=== PATIENT | female | born 1930 | race Caucasian/White ===

== ENCOUNTER 2020-08-06 09:31 | Inpatient (IN) | payer MEDICARE, OTHER ==
[~2020-08-06] VITALS: Ht 167.6 cm; Wt 66.4 kg
[2020-08-06] VITALS (8 sets, daily range): BP systolic 135–168; BP diastolic 62–83; Ht 167.6 cm; Wt 66.4 kg
[2020-08-06] MEDS ORDERED: ANASTROZOLE 1MG (09:43)
[2020-08-06] MEDS ORDERED: ZOFRAN8 MG PO (09:44)
[2020-08-06] MEDS ORDERED: BREO ELLIPTA 11 EACH INH (09:44)
[2020-08-06] MEDS ORDERED: ASPIRIN81 MG PO (09:45)
[2020-08-06] MEDS ORDERED: BACTRIM DS TAB1 EAC1 PO (09:45)
[2020-08-06] MEDS ORDERED: TRIAMTERENE-HC1 EAC3 PO (09:45)
[2020-08-06 10:04] LABS: BASOPHILS 0.4 % (0-2); EOSINOPHILS 0.7 % (0-7); HEMATOCRIT 37.5 % (36.0-48.0); HEMOGLOBIN 12.5 g/dL (12-16); IMMATURE GRANULOCYTES 1.1 % (0-5); LYMPHOCYTES 13.4 % (15-50); MCHC 33.3 g/dL (31.0-37.0); MCV 89.9 fL (80.0-100.0); MEAN PLATELET VOLUME 9.3 fL (7.4-10.4); MONOCYTES 9.4 % (2-11); PLATELET COUNT 360 10x3/uL (130-400); RBC 4.17 10x6/uL (4.00-5.40); RDW 14.7 % (11.5-14.5); WBC 14.2 10x3/uL (4.8-10.8)
[2020-08-06 10:17] LABS: ANION GAP 14.4 mmol/L (8-16); CARBON DIOXIDE 26.3 mmol/L (21.0-32.0); CREATININE - SERUM 2.1 mg/dL (0.6-1.3); POTASSIUM - SERUM 4.7 mmol/L (3.5-5.1)
[2020-08-06 10:26] LABS: ALBUMIN 3.7 g/dL (3.4-5.0); BILIRUBIN - TOTAL 0.43 mg/dL (0.2-1.3); PROTEIN - SERUM 7.6 g/dL (6.4-8.2)
--- NOTE | 2020-08-06 11:51 | NUR ---
PT REPORTS OK FOR GIVING INFORMATION TO HER SON, VIELKA REYES @ [phone].
[2020-08-06 12:12] LABS: BILIRUBIN NEGATIVE (NEGATIVE); KETONE NEGATIVE (NEGATIVE); NITRITE NEGATIVE (NEGATIVE); UROBILINOGEN NORMAL mg/dL (< 2)
--- NOTE | 2020-08-06 17:40 | NUR ---
ARRIVE TO ROOM VIA STRETCHER FROM ER. ALERT AND ORIENTED X4. TRANSFERS FROM STRETCHER TO BED WITH MINIMAL ASSISTANCE. NO SCD MACHINE IN ROOM. INITIATE ISOLATION TO RULE OUT COVID. CONTINUE ADMISSION PROCESS AND SAFETY PRECAUTIONS.
--- NOTE | 2020-08-06 19:18 | NUR ---
REPORT RECIEVED AND ROUNDING COMPLETE. PATIENT LAYING IN BED IN LOW FOWLERS POSITIONS. DISCUSSED WITH PATIENT DOCTORS ORDER OF NO FREE WATER RESTRICTION,PATIENT STATES SHE HAS NO NEEDS AT THIS TIME. PATIENT IS [place]. RIGHT HAND PIV THAT IS PATENT AND RUNNING FLUIDS AT THIS TIME. NO DISTRESS NOTED AT THIS TIME. CALL LIGHT WIHTIN REACH AND BED IN LOWEST LOCKED POSITION.
[2020-08-07] VITALS: BP 124/61
[2020-08-07 04:00] VITALS: BP 135/69
[2020-08-07 06:28] LABS: BASOPHILS 0.6 % (0-2); EOSINOPHILS 1.5 % (0-7); HEMATOCRIT 32.9 % (36.0-48.0); HEMOGLOBIN 10.5 g/dL (12-16); LYMPHOCYTES 12.7 % (15-50); MCH 29.2 pg (26.0-34.0); MCHC 31.9 g/dL (31.0-37.0); MCV 91.4 fL (80.0-100.0); MEAN PLATELET VOLUME 9.4 fL (7.4-10.4); MONOCYTES 6.9 % (2-11); NEUTROPHILS 77.3 % (40-80); RDW 14.8 % (11.5-14.5)
[2020-08-07 06:37] LABS: PLATELET COUNT 260 10x3/uL (130-400); WBC 8.6 10x3/uL (4.8-10.8)
[2020-08-07 06:45] LABS: ALBUMIN 2.6 g/dL (3.4-5.0); BILIRUBIN - TOTAL 0.46 mg/dL (0.2-1.3); CALCIUM 8.1 mg/dL (8.5-10.1); CARBON DIOXIDE 22.9 mmol/L (21.0-32.0); CREATININE - SERUM 1.4 mg/dL (0.6-1.3); POTASSIUM - SERUM 3.9 mmol/L (3.5-5.1); PROTEIN - SERUM 5.4 g/dL (6.4-8.2)
--- NOTE | 2020-08-07 07:20 | NUR ---
RECEIVE SHIFT REPORT. RESTING IN BED. DENIES ANY NEEDS AT THIS TIME. WILL CONTINUE PLAN OF CARE AND SAFETY PRECAUTIONS.
[2020-08-07 07:53] VITALS: BP 140/77
[2020-08-07 11:04] VITALS: BP 144/72
--- NOTE | 2020-08-07 15:45 | MORECARE ---
CASE MANAGEMENT DISCHARGE SUMMARY PATIENT: SARBJIT REYES UNIT: [id number] ADM DATE: 08/06/20 AGE: 89 : [birth year] SEX: F ROOM/BED: D.9601 AUTHOR: GURWINDER WHITNEY PHYSICIAN: REFERRING PHYSICIAN: CANDACE HERNANDEZ MD DATE OF SERVICE: 08/07/20 Discharge Plan Patient Name: SARBJIT REYES Facility: [facility]:[place] : 1930 Planned Disposition: Home Anticipated Discharge Date: 08/07/20 Discharge Date: Expected LOS: 1 Initial Reviewer: ALMA DELIA Initial Review Date: 08/07/2020 Generated: 08/07/20 4:44 pm Comments DCP- Discharge Planning Updated by [email or web address]: Yousuf Pope on 08/07/20 2:[address] Patient Name: SARBJIT REYES Admission Status: ER Accout number: [id number] Admission Date: 08-06-2020 : 1930 Admission Diagnosis:OTHER FATIGUE Attending: CANDACE HERNANDEZ Current LOS: 1 Anticipated DC Date: Planned Disposition: Primary Insurance: MEDICARE A & B Discharge Planning Comments: CM met with patient via telephone per current [facility] protocols to complete initial dc planning assessment. CM educated patient on the CM role and verbal consent was given by patient to speak with her son Domingo Reyes (POA) at [phone] to complete assessment. CM verified patient's address, phone number, and emergency contact phone numbers. Patient lives at home with family. At discharge patient plans to return home and feels this is a safe discharge. Domingo stated that the patient has 0 steps to navigate to enter the home and it is safe. Patient [facility]. CM discussed availability of home health, rehab services, and medical equipment. Domingo stated that the patient needs help dressing at times but feels that he is able to care for her adequately. Domingo (POA) declined HH, DME, SNF, and IPR at this time. Transportation provider at discharge will be with her son Domingo. CM will continue to follow and will assist as needed with dc plans/needs. Peeler Operator: Yousuf Pope DCPIA - Discharge Planning Initial Assessment Updated by [email or web address]: Yousuf Pope on 08/07/20 3:42 pm * Is the patient Alert and Oriented? Yes * How many steps to enter\exit or inside your home? 0/0 * PCP Dr Salcido * Pharmacy [facility] [address] * Preadmission Environment Home with Family * ADLs Partial Dependent * Partial ADLs (Assistance needed) Dressing * Equipment Cane Walker * Other Equipment n/a * List name and contact numbers for known caregivers / representatives who currently or will assist patient after discharge: Domingo Montield at [phone] * Verbal permission to speak to the caregivers and representatives has been obtained from the patient. Yes * Community resources currently utilized None * Additional services required to return to the preadmission environment? No * Can the patient safely return to the preadmission environment? Yes * Has this patient been hospitalized within the prior 30 days at any hospital? No Patient Name: SARBJIT REYES Page [id number] at 1545 All edits/amendments must be made on the electronic document DICTATION DATE: 08/07/20 1544 SKEIN MERCERIZING MACHINE OPERATOR: JADYN 08/07/20 1544 RPT#: [id number] DC DATE: STATUS: ADM IN [facility] [address] [place] [address] END OF REPORT
--- NOTE | 2020-08-07 16:47 | NUR ---
D/C RIGHT HAND IV, TIP INTACT. DISCHARGE INSTRUCTIONS GIVEN VERBALLY AND HANDOUTS WERE GIVEN. MEDIA JOB TITLES TOOK PATIENT DOWN TO ED ENTRANCE TO MEET DAUGHTER IN LAW. REMAINS FREE FROM INJURY.
--- NOTE | 2020-08-08 09:40 | MORECARE ---
CASE MANAGEMENT DISCHARGE SUMMARY PATIENT: SARBJIT REYES UNIT: [id number] ADM DATE: 08/06/20 AGE: 89 : [birth year] SEX: F ROOM/BED: D.7347 AUTHOR: GURWINDER WHITNEY PHYSICIAN: REFERRING PHYSICIAN: CANDACE HERNANDEZ MD DATE OF SERVICE: 08/08/20 Discharge Plan Patient Name: SARBJIT REYES Facility: [facility]:[place] : 1930 Planned Disposition: Home Anticipated Discharge Date: 08/07/20 Discharge Date: 08/07/2020 Expected LOS: 1 Initial Reviewer: [email or web address] Initial Review Date: 08/07/2020 Generated: 08/08/20 10:40 am Comments DCP- Discharge Planning Updated by [email or web address]: Yousuf Pope on 08/07/20 2:[address] Patient Name: SARBJIT REYES Admission Status: ER Accout number: [id number] Admission Date: 08-06-2020 : 1930 Admission Diagnosis:OTHER FATIGUE Attending: CANDACE HERNANDEZ Current LOS: 1 Anticipated DC Date: Planned Disposition: Primary Insurance: MEDICARE A & B Discharge Planning Comments: CM met with patient via telephone per current [facility] protocols to complete initial dc planning assessment. CM educated patient on the CM role and verbal consent was given by patient to speak with her son Domingo Reyes (POA) at [phone] to complete assessment. CM verified patient's address, phone number, and emergency contact phone numbers. Patient lives at home with family. At discharge patient plans to return home and feels this is a safe discharge. Domingo stated that the patient has 0 steps to navigate to enter the home and it is safe. Patient fills his medications at [facility] [address]. CM discussed availability of home health, rehab services, and medical equipment. Domingo stated that the patient needs help dressing at times but feels that he is able to care for her adequately. Domingo (POA) declined HH, DME, SNF, and IPR at this time. Transportation provider at discharge will be with her son Domingo. CM will continue to follow and will assist as needed with dc plans/needs. Controller Repairer And Tester: Yousuf Pope DCPIA - Discharge Planning Initial Assessment Updated by [email or web address]: Yousuf Pope on 08/07/20 3:42 pm * Is the patient Alert and Oriented? Yes * How many steps to enter\exit or inside your home? 0/0 * PCP Dr Salcido * [facility] [address] * Preadmission Environment Home with Family * ADLs Partial Dependent * Partial ADLs (Assistance needed) Dressing * Equipment Cane Walker * Other Equipment n/a * List name and contact numbers for known caregivers / representatives who currently or will assist patient after discharge: Domingo Montield at [phone] * Verbal permission to speak to the caregivers and representatives has been obtained from the patient. Yes * Community resources currently utilized None * Additional services required to return to the preadmission environment? No * Can the patient safely return to the preadmission environment? Yes * Has this patient been hospitalized within the prior 30 days at any hospital? No Last DP export: 08/07/20 2:45 p Patient Name: SARBJIT REYES Page [phone] at 0940 All edits/amendments must be made on the electronic document DICTATION DATE: 08/08/20939 BILINGUAL PATIENT SUPPORT CASEWORKER: JADYN 08/08/2040 RPT#: [id number] DC DATE:08/07/20 STATUS: DIS IN [facility] [address] [place] [address] END OF REPORT
== END 2020-08-07 18:13 | disposition home or self-care (01) | DRG 683 ==
LOC: D.ER 09:31 → D.M2 16:36 → OBSVTIME 19:00 → D.M2 19:45
PROVIDERS: Family Medicine; ADMIT Family Medicine; ATTEND Family Medicine
DX: N17.9 Acute kidney failure, unspecified (principal); E87.1 Hypo-osmolality and hyponatremia; T46.5X5A Adverse effect of other antihypertensive drugs, initial encounter; E86.0 Dehydration

== ENCOUNTER 2020-08-12 05:58 | Inpatient (IN) | payer MEDICARE, OTHER ==
[~2020-08-12] VITALS: Ht 167.6 cm; Wt 79.4 kg
[~2020-08-12 05:58] MED LIST: ANASTROZOLE 1MG; ASPIRIN81 MG PO; BACTRIM DS TAB1 EAC1 PO; BREO ELLIPTA 11 EACH INH; TRIAMTERENE-HC1 EAC3 PO; ZOFRAN8 MG PO
[2020-08-12 06:13] VITALS: BP 155/77
[2020-08-12 06:18] VITALS: BP 155/77
[2020-08-12 06:49] LABS: BASOPHILS 0.2 % (0-2); EOSINOPHILS 1.6 % (0-7); HEMATOCRIT 35.7 % (36.0-48.0); HEMOGLOBIN 11.6 g/dL (12-16); IMMATURE GRANULOCYTES 0.5 % (0-5); LYMPHOCYTES 9.7 % (15-50); MCH 29.7 pg (26.0-34.0); MCHC 32.5 g/dL (31.0-37.0); MCV 91.5 fL (80.0-100.0); MEAN PLATELET VOLUME 8.9 fL (7.4-10.4); MONOCYTES 8.7 % (2-11); NEUTROPHILS 79.3 % (40-80); PLATELET COUNT 242 10x3/uL (130-400); RDW 15.5 % (11.5-14.5); WBC 12.1 10x3/uL (4.8-10.8)
--- NOTE | 2020-08-12 06:50 | NUR ---
LUIZA VEGA SENT TO LAB.
[2020-08-12 06:56] LABS: BILIRUBIN NEGATIVE (NEGATIVE); KETONE NEGATIVE (NEGATIVE); NITRITE NEGATIVE (NEGATIVE); UROBILINOGEN NORMAL mg/dL (< 2)
[2020-08-12 06:58] LABS: APTT 24.7 SECONDS (22.8-39.4); CALC OSMOLALITY 255 mosm/kg (275-300); CALCIUM 9.6 mg/dL (8.5-10.1); CARBON DIOXIDE 24.6 mmol/L (21.0-32.0); CHLORIDE - SERUM 93 mmol/L (98-107); CREATININE - SERUM 1.6 mg/dL (0.6-1.3); GLUCOSE 94 mg/dL (74-106); INR 0.94 (0.85-1.17); POTASSIUM - SERUM 5.3 mmol/L (3.5-5.1); PROTIME 12.5 SECONDS (11.6-15.0); SODIUM 125 mmol/L (136-145); UREA NITROGEN 25 mg/dL (7-18); eGFR NON AFRICAN AMERICAN 32 mL/min (90-120)
[2020-08-12 07:16] LABS: ALBUMIN 3.5 g/dL (3.4-5.0); ALKALINE PHOSPHATASE 101 U/L (30-120); ALT (SGPT) 23 U/L (10-68); BILIRUBIN - TOTAL 0.35 mg/dL (0.2-1.3); CKMB 2.2 U/L (0.0-3.6); CREATINE KINASE 40 UL (21-215); MAGNESIUM - SERUM 2.1 mg/dL (1.8-2.4); PROTEIN - SERUM 7.2 g/dL (6.4-8.2); THYROID STIMULATING HORMONE 1.97 uIU/mL (0.36-3.74)
[2020-08-12 07:17] LABS: TROPONIN-I < 0.017 ng/mL (0.000-0.060)
--- NOTE | 2020-08-12 08:44 | NUR ---
CALL PLACED TO ORDER A BREAKFAST TRAY FOR THE PT, SHE IS YET TO RECEIVE A TRAY. PT HAS AN ORDER FOR A AHA.
[2020-08-12 14:00] VITALS: BP 124/55
--- NOTE | 2020-08-12 15:23 | NUR ---
PT EATING LUNCH TRAY AT THIS TIME, DENIES NEEDS
[2020-08-12 16:45] VITALS: BP 111/48
--- NOTE | 2020-08-12 17:05 | NUR ---
ATTEMPT X 3 TO CALL REPORT TO FLOOR, ANSWER ON FLOOR X 1, NURSE AVAILABLE X 0
[2020-08-12 22:45] VITALS: BP 128/61
--- NOTE | 2020-08-12 23:18 | NUR ---
Changed pt at this time--placed new pull up and placed fresh pads underneath--pt tolerated all well.
--- NOTE | 2020-08-12 23:19 | NUR ---
1900--Lying in bed awake, alert, oriented. Denies any needs at this time, calls for assist when needed.
[2020-08-12 23:20] VITALS: BP 113/48; Ht 167.6 cm; Wt 79.4 kg
--- NOTE | 2020-08-13 00:16 | NUR ---
LYING IN BED W/EYES CLOSED, NO DISTRESS NOTED.
[2020-08-13 02:12] VITALS: BP 112/50
--- NOTE | 2020-08-13 02:54 | NUR ---
0200--PLACED DRY PULL UP ON PT AND DRY PAD UNDERNEATH PT--APPLE JUICE AND MILK BROUGHT TO ROOM/REQUEST, NO FURTHER NEEDS VOICED AT THIS TIME.
[2020-08-13 05:52] VITALS: BP 115/46
[2020-08-13 06:35] LABS: BASOPHILS 0.4 % (0-2); EOSINOPHILS 3.4 % (0-7); HEMATOCRIT 33.8 % (36.0-48.0); HEMOGLOBIN 10.7 g/dL (12-16); IMMATURE GRANULOCYTES 0.7 % (0-5); LYMPHOCYTES 14.6 % (15-50); MCH 29.8 pg (26.0-34.0); MCHC 31.7 g/dL (31.0-37.0); MEAN PLATELET VOLUME 9.2 fL (7.4-10.4); MONOCYTES 7.5 % (2-11); NEUTROPHILS 73.4 % (40-80); PLATELET COUNT 211 10x3/uL (130-400); RBC 3.59 10x6/uL (4.00-5.40); RDW 15.8 % (11.5-14.5); WBC 9.1 10x3/uL (4.8-10.8)
[2020-08-13 06:47] LABS: MCV 94.2 fL (80.0-100.0)
[2020-08-13 07:00] VITALS: BP 117/50
--- NOTE | 2020-08-13 07:00 | NUR ---
RECEIVED REPORT. ASSUMED CARE OF PATIENT. CALL LIGHT WITHIN REACH. PATIENT AWAKE/ALERT, SITTING UP IN BED. RESP EVEN AND UNLABORED. BEDSIDE SHIFT REPORT COMPLETE, WHITE BOARD UPDATED. DENIES NEEDS. NO DISTRESS. RESERVE LEFT ARM SIGNS PLACED DUE TO S/P MASECTOMY.
[2020-08-13 07:08] LABS: ALBUMIN 2.8 g/dL (3.4-5.0); BILIRUBIN - TOTAL 0.43 mg/dL (0.2-1.3); CALCIUM 8.7 mg/dL (8.5-10.1); CREATININE - SERUM 1.4 mg/dL (0.6-1.3); MAGNESIUM - SERUM 1.9 mg/dL (1.8-2.4); PHOSPHOROUS 3.4 mg/dL (2.5-4.9); PROTEIN - SERUM 5.9 g/dL (6.4-8.2)
--- NOTE | 2020-08-13 10:02 | NUR ---
RATE OF FLUIDS REDUCED TO 75ML/HR AT THIS TIME. NO DISTRESS.
[2020-08-13 11:00] VITALS: BP 100/50
--- NOTE | 2020-08-13 11:14 | NUR ---
ULTRASOUND AT BEDSIDE AT THIS TIME FOR KIDNEYS AND BLADDER.
[2020-08-13 15:00] VITALS: BP 123/55
--- NOTE | 2020-08-13 15:25 | NUR ---
PATIENT RESTING PEACEFULLY WITH EYES CLOSED. NO DISTRESS. CALL LIGHT WITHIN REACH. DENIES NEEDS AT THIS TIME.
--- NOTE | 2020-08-13 17:22 | NUR ---
MEDICATED FOR NAUSEA AT THIS TIME. NO DISTRESS.
--- NOTE | 2020-08-13 18:21 | NUR ---
OT NOTE: PT IS NAUSEOUS. NURSING AWARE. PT GIVEN COLD WASH CLOTH TO WIPE FACE. PT COMPLETED BUE AROM EXS TOLERATED. PT COMPLETED BED MOB TASKS WITH MIN A. [phone] THANK YOU,SARAH SOLIMAN
--- NOTE | 2020-08-13 18:33 | NUR ---
20 GAUGE IV REMOVED FORM RIGHT AC DUE TO LEAKAGE FROM INSERTION SITE. CATHETER TIP INTACT. NO BLEEDING FROM SITE. 2X2 GAUZE APPLIED AND SECURED WITH TAPE. 20 GAUGE IV PLACED TO RIGHT FOREARM X 1 STICK. GODD BLOOD RETURN, EASY FLUSH. TAPED DATED AND SECURED. TOLERATED IV PLACEMENT WELL. IV FLUIDS INFUSING ORDERED AT THIS TIME.
[2020-08-13 19:58] VITALS: BP 108/41
[2020-08-14] VITALS: BP 98/50
[2020-08-14 04:00] VITALS: BP 136/51
[2020-08-14 06:06] LABS: BASOPHILS 0.6 % (0-2); EOSINOPHILS 4.3 % (0-7); HEMATOCRIT 30.8 % (36.0-48.0); HEMOGLOBIN 9.7 g/dL (12-16); IMMATURE GRANULOCYTES 0.8 % (0-5); LYMPHOCYTES 14.6 % (15-50); MCH 29.4 pg (26.0-34.0); MCHC 31.5 g/dL (31.0-37.0); MCV 93.3 fL (80.0-100.0); MEAN PLATELET VOLUME 8.9 fL (7.4-10.4); MONOCYTES 7.5 % (2-11); NEUTROPHILS 72.2 % (40-80); PLATELET COUNT 189 10x3/uL (130-400); RDW 15.9 % (11.5-14.5); WBC 7.9 10x3/uL (4.8-10.8)
--- NOTE | 2020-08-14 06:37 | NUR ---
URINE COLLECTED AND SENT TO LAB.
[2020-08-14 06:46] LABS: ALBUMIN 2.8 g/dL (3.4-5.0); BILIRUBIN - TOTAL 0.49 mg/dL (0.2-1.3); CALCIUM 9.3 mg/dL (8.5-10.1); CARBON DIOXIDE 25.9 mmol/L (21.0-32.0); CREATININE - SERUM 1.2 mg/dL (0.6-1.3); POTASSIUM - SERUM 4.9 mmol/L (3.5-5.1); PROTEIN - SERUM 5.7 g/dL (6.4-8.2); URIC ACID 4.3 mg/dL (2.6-7.2)
[2020-08-14 08:08] LABS: PRO/CRE RATIO URINE 0.3 mg/g; PROTEIN - URINE 4.4 mg/dL (0.0-11.9)
[2020-08-14 10:52] VITALS: BP 112/45
--- NOTE | 2020-08-14 12:36 | MORECARE ---
CASE MANAGEMENT DISCHARGE SUMMARY PATIENT: SARBJIT REYES UNIT: [id number] ADM DATE: 08/12/20 AGE: 89 : [birth year] SEX: F ROOM/BED: D.2103 AUTHOR: GURWINDER WHITNEY PHYSICIAN: REFERRING PHYSICIAN: KAYLI SUÁREZ MD DATE OF SERVICE: 08/14/20 Discharge Plan Patient Name: SARBJIT REYES Facility: [facility]:[place] : 1930 Planned Disposition: Home Anticipated Discharge Date: Discharge Date: Expected LOS: Initial Reviewer: [email or web address] Initial Review Date: 08/14/2020 Generated: 08/14/20 1:36 pm Coverage Notice Reviewer: [id number] - Arlet Dunbar Notice Issued Date-Time: 08/14/2020 12:32 Notice Type: IM Discharge Notice Notice Delivered To: Patient Relationship to Patient: Self Web Content Manager Name: Delivery Method: HAND - Hand Delivered Chelsea Days: Prior Verbal Notification: Recipient Understood Notice: Yes Recipient Signature: Yes Med Rec Note Co-signed by Attending: Coverage Notice Comment: IMM explained, signed, given, copy placed in MR Patient Name: SARBJIT REYES Page [phone] at 1236 All edits/amendments must be made on the electronic document DICTATION DATE: 08/14/20 1236 BAD CLOTH CHECKER: JADYN 08/14/20 1236 RPT#: [id number] DC DATE: STATUS: [facility] [address] [place] [address] END OF REPORT
--- NOTE | 2020-08-14 12:45 | MORECARE ---
CASE MANAGEMENT DISCHARGE SUMMARY PATIENT: SARBJIT CASTELLANOS UNIT: [id number] ADM DATE: 08/12/20 AGE: 89 : [birth year] SEX: F ROOM/BED: D.2103 AUTHOR: GURWINDER WHITNEY PHYSICIAN: REFERRING PHYSICIAN: KAYLI SUÁREZ MD DATE OF SERVICE: 08/14/20 Discharge Plan Patient Name: SARBJIT CASTELLANOS Facility: [facility]:[place] : 1930 Planned Disposition: Home Anticipated Discharge Date: Discharge Date: Expected LOS: Initial Reviewer: [email or web address] Initial Review Date: 08/14/2020 Generated: 08/14/20 1:44 pm DCPIA - Discharge Planning Initial Assessment Updated by [email or web address]: Arlet Dunbar on 08/14/20 12:36 pm * Is the patient Alert and Oriented? Yes * How many steps to enter\exit or inside your home? 0/0 * PCP Dr. Salcido in [place] * [facility] * Preadmission Environment Home with Family * ADLs Partial Dependent * Partial ADLs (Assistance needed) Ambulation Dressing * Equipment Cane Walker * List name and contact numbers for known caregivers / representatives who currently or will assist patient after discharge: Domingo Castellanos - Son (POA) - [phone] * Verbal permission to speak to the caregivers and representatives has been obtained from the patient. Yes * Community resources currently utilized None * Additional services required to return to the preadmission environment? No * Can the patient safely return to the preadmission environment? Yes * Has this patient been hospitalized within the prior 30 days at any hospital? Yes Coverage Notice Reviewer: [id number] - Arlet Dunbar Notice Issued Date-Time: 08/14/2020 12:32 Notice Type: IM Discharge Notice Notice Delivered To: Patient Relationship to Patient: Self Barbecue Cook Name: Delivery Method: HAND - Hand Delivered Chelsea Days: Prior Verbal Notification: Recipient Understood Notice: Yes Recipient Signature: Yes Med Rec Note Co-signed by Attending: Coverage Notice Comment: IMM explained, signed, given, copy placed in MR Last DP export: 08/14/20 11:36 a Patient Name: SARBJIT CASTELLANOS Page [phone] at 1245 All edits/amendments must be made on the electronic document DICTATION DATE: 08/14/20 1244 INSULATION BATTING MACHINE OPERATOR: JADYN 08/14/20 1244 RPT#: [id number] DC DATE: STATUS: ADM IN [facility] [address] [place] [address] END OF REPORT
--- NOTE | 2020-08-14 12:55 | MORECARE ---
CASE MANAGEMENT DISCHARGE SUMMARY PATIENT: SARBJIT REYES UNIT: [id number] ADM DATE: 08/12/20 AGE: 89 : [birth year] SEX: F ROOM/BED: D.2103 AUTHOR: CHELO,DOC PHYSICIAN: REFERRING PHYSICIAN: KAYLI HIGGINS MD DATE OF SERVICE: 08/14/20 Discharge Plan Patient Name: SARBJIT REYES Facility: [facility]:[place] : 1930 Planned Disposition: Home Anticipated Discharge Date: Discharge Date: Expected LOS: Initial Reviewer: [email or web address] Initial Review Date: 08/14/2020 Generated: 08/14/20 1:54 pm Comments DCP- Discharge Planning Updated by [id number]: Arlet Manjinder on 08/14/20 11:[address] I spoke with SATYA Shana Reyes (works at [employer] in [employer]), and she confirms that patient has decreased free water intake and has been eating foods high in Na. States she would like to speak with Dr. Higgins on rounds. I have informed Ashley of this. CM will continue to follow and assist with discharge planning/needs. DCP- Discharge Planning Updated by [email or web address]: Arlet Tamezsuzanna on 08/14/20 11:[address] Patient Name: SARBJIT REYES Admission Status: ER Accout number: [id number] Admission Date: 08-12-2020 : 1930 Admission Diagnosis: Attending: KAYLI HIGGINS Current LOS: 2 Anticipated DC Date: Planned Disposition: Home Primary Insurance: MEDICARE A & B Discharge Planning Comments: CM met with patient to complete initial dc planning assessment. CM educated patient on the CM role and verbal consent given by patient to complete assessment. Patient is staying with her son and DIL at [address] [place] [address] in [place]. At discharge patient plans to return and feels this is a safe discharge. States when she is able to go back home to [place], she plans on returning to [place]. CM discussed availability of home health, rehab services, and medical equipment. Patient denied known discharge needs at this time. Declines rehab or home health. States she plans on getting home health when she returns to [place]. States her family is already making arrangements for HHS when she returns home to [place]. CM will continue to follow and will assist as needed with dc plans/needs. Sand Mill Operator Core Sand: Arlet Tamezsuzanna DCPIA - Discharge Planning Initial Assessment Updated by [id number]: Arlet Manjinder on 08/14/20 12:36 pm * Is the patient Alert and Oriented? Yes * How many steps to enter\exit or inside your home? 0/0 * PCP Dr. Salcido in [place] * Pharmacy [facility] [address] * Preadmission Environment Home with Family * ADLs Partial Dependent * Partial ADLs (Assistance needed) Ambulation Dressing * Equipment Cane Walker * List name and contact numbers for known caregivers / representatives who currently or will assist patient after discharge: Domingo Reyes - Son (POA) - [phone] * Verbal permission to speak to the caregivers and representatives has been obtained from the patient. Yes * Community resources currently utilized None * Additional services required to return to the preadmission environment? No * Can the patient safely return to the preadmission environment? Yes * Has this patient been hospitalized within the prior 30 days at any hospital? Yes Coverage Notice Reviewer: [id number] - Arlet Orrsuzanna Notice Issued Date-Time: 08/14/2020 12:32 Notice Type: IM Discharge Notice Notice Delivered To: Patient Relationship to Patient: Self Full Time Paramedic Name: Delivery Method: HAND - Hand Delivered Chelsea Days: Prior Verbal Notification: Recipient Understood Notice: Yes Recipient Signature: Yes Med Rec Note Co-signed by Attending: Coverage Notice Comment: IMM explained, signed, given, copy placed in MR Last DP export: 08/14/20 11:44 a Patient Name: SARBJIT REYES Page [phone] at 1255 All edits/amendments must be made on the electronic document DICTATION DATE: 08/14/20 1254 CNC MACHINE SETTER: JADYN 08/14/20 1254 RPT#: [id number] DC DATE: STATUS: ADM IN [facility] [address] [place] [address] END OF REPORT
--- NOTE | 2020-08-14 14:37 | NUR ---
OT NOTE: PT COMPLETED SUPINE TO SIT MIN A FOR LE MANAGEMENT. PT COMPLETED ADL MOB WITH RW REQUIRED CGA. PT REQUIRED MAX A FOR KELSEY SOCKS. PT COMPLETED FACE HYGIENE WITH SETUP AT EOB. PT EXHIBITED INCREASED INDEPENDENCE WITH MOBILITY TASKS. [phone] THANK YOU,SARAH SOLIMAN
[2020-08-14 14:54] VITALS: BP 132/65
--- NOTE | 2020-08-14 17:36 | NUR ---
OT NOTE: PT DOING MUCH BETTER TODAY. BED MOB AT VERY MIN ASSIST; EOB SITTING WITH GOOD STATIC AND DYNAMIC SITTING BALANCE; AROM WFLS B UES..SIT TO STAND WITH MIN ASSIST WITH USE OF WALKER.. IN ROOM AMBULATION WITH WALKER AND CGA. NO SOB NOTED DURING IN ROOM ACT. CLAYTON RONDON, OTR/L
[2020-08-14 20:00] VITALS: BP 115/48
--- NOTE | 2020-08-15 03:07 | NUR ---
I have reviewed this patient and I concur with the Shift Assessment completed by the Licensed Practical Nurse today this shift.
[2020-08-15 04:00] VITALS: BP 119/57
[2020-08-15 06:09] LABS: BASOPHILS 0.5 % (0-2); EOSINOPHILS 4.7 % (0-7); HEMATOCRIT 29.7 % (36.0-48.0); HEMOGLOBIN 9.3 g/dL (12-16); IMMATURE GRANULOCYTES 0.7 % (0-5); LYMPHOCYTES 12.9 % (15-50); MCH 29.5 pg (26.0-34.0); MCHC 31.3 g/dL (31.0-37.0); MCV 94.3 fL (80.0-100.0); MEAN PLATELET VOLUME 8.7 fL (7.4-10.4); MONOCYTES 8.9 % (2-11); NEUTROPHILS 72.3 % (40-80); PLATELET COUNT 183 10x3/uL (130-400); RBC 3.15 10x6/uL (4.00-5.40); WBC 7.7 10x3/uL (4.8-10.8)
[2020-08-15 06:32] LABS: ALBUMIN 2.8 g/dL (3.4-5.0); ANION GAP 9.7 mmol/L (8-16); BILIRUBIN - TOTAL 0.4 mg/dL (0.2-1.3); CALCIUM 9.3 mg/dL (8.5-10.1); CARBON DIOXIDE 26.7 mmol/L (21.0-32.0); CREATININE - SERUM 1.2 mg/dL (0.6-1.3); POTASSIUM - SERUM 4.4 mmol/L (3.5-5.1); PROTEIN - SERUM 5.9 g/dL (6.4-8.2)
[2020-08-15 08:10] VITALS: BP 119/59
[2020-08-15] MEDS ORDERED: MUCINEX600 MG PO (09:54)
[2020-08-15] MEDS ORDERED: TESSALON PERLE100 MG PO (09:54)
[2020-08-15] MEDS ORDERED: ZITHROMAX500 MG PO (09:55)
[2020-08-15] MEDS ORDERED: OMNICEF300 MG PO (09:56)
[2020-08-15 11:44] VITALS: BP 112/50; BP 119/55
--- NOTE | 2020-08-15 11:51 | NUR ---
Rehab Note- Acute Inpatient REhab prescreen order received. THe patient is an appropriate candidate for an inpatient acute rehab stay as she has had numerous recent hosptialization and has weakness with needed continued monitoring at this time. Have spoken with ELIER Nice. Will accept the patient to [facility] Acute Inpatient Rehab if the patient is in agreeance. Will follow at this time. Thank you for this referral! Jemma Boykin RN Clinical Liaison, [facility] Rehab
--- NOTE | 2020-08-15 12:30 | MORECARE ---
CASE MANAGEMENT DISCHARGE SUMMARY PATIENT: SARBJIT REYES UNIT: [id number] ADM DATE: 08/12/20 AGE: 89 : [birth year] SEX: F ROOM/BED: D.2103 AUTHOR: CHELO,DOC PHYSICIAN: REFERRING PHYSICIAN: KAYLI HIGGINS MD DATE OF SERVICE: 08/15/20 Discharge Plan Patient Name: SARBJIT REYES Facility: [facility]:[place] : 1930 Planned Disposition: Home Anticipated Discharge Date: Discharge Date: Expected LOS: Initial Reviewer: [email or web address] Initial Review Date: 08/14/2020 Generated: 08/15/20 1:30 pm Comments DCP- Discharge Planning Updated by [email or web address]: Arlet Dunbar on 08/15/20 11:[address] I spoke with SATYA Trevino, she states that patient agrees to inpatient rehab at [facility]. I have called Jemma in inpatient rehab and informed, they will accept today. DCP- Discharge Planning Updated by [id number]: Arlet Dunbar on 08/14/20 11:[address] I spoke with Shana HERNADEZ (works at [facility] in outpatient's), and she confirms that patient has decreased free water intake and has been eating foods high in Na. States she would like to speak with Dr. Higgins on rounds. I have informed Ashley of this. CM will continue to follow and assist with discharge planning/needs. DCP- Discharge Planning Updated by [email or web address]: Arlet Dunbar on 08/14/20 11:[address] Patient Name: SARBJIT REYES Admission Status: ER Accout number: [id number] Admission Date: 08-12-2020 : 1930 Admission Diagnosis: Attending: KAYLI HIGGINS Current LOS: 2 Anticipated DC Date: Planned Disposition: Home Primary Insurance: MEDICARE A & B Discharge Planning Comments: CM met with patient to complete initial dc planning assessment. CM educated patient on the CM role and verbal consent given by patient to complete assessment. Patient is staying with her son and DIL at [address] [place] [address]. At discharge patient plans to return and feels this is a safe discharge. States when she is able to go back home to [place], she plans on returning to [place]. CM discussed availability of home health, rehab services, and medical equipment. Patient denied known discharge needs at this time. Declines rehab or home health. States she plans on getting home health when she returns to [place]. States her family is already making arrangements for HHS when she returns home to [place]. CM will continue to follow and will assist as needed with dc plans/needs. Hunter Trapper: Arlet Dunbar DCPIA - Discharge Planning Initial Assessment Updated by [email or web address]: Arlet Dunbar on 08/14/20 12:36 pm * Is the patient Alert and Oriented? Yes * How many steps to enter\exit or inside your home? 0/0 * PCP Dr. Salcido in [place] * Pharmacy [facility] [address] * Preadmission Environment Home with Family * ADLs Partial Dependent * Partial ADLs (Assistance needed) Ambulation Dressing * Equipment Cane Walker * List name and contact numbers for known caregivers / representatives who currently or will assist patient after discharge: Domingo Reyes - Son (ANJU) - [phone] * Verbal permission to speak to the caregivers and representatives has been obtained from the patient. Yes * Community resources currently utilized None * Additional services required to return to the preadmission environment? No * Can the patient safely return to the preadmission environment? Yes * Has this patient been hospitalized within the prior 30 days at any hospital? Yes Coverage Notice Reviewer: [id number] Annamaria Dunbar Notice Issued Date-Time: 08/14/2020 12:32 Notice Type: IM Discharge Notice Notice Delivered To: Patient Relationship to Patient: Self Flight Test Mechanic Name: Delivery Method: HAND - Hand Delivered Chelsea Days: Prior Verbal Notification: Recipient Understood Notice: Yes Recipient Signature: Yes Med Rec Note Co-signed by Attending: Coverage Notice Comment: IMM explained, signed, given, copy placed in MR Reviewer: [id number] Annamaria Dunbar Notice Issued Date-Time: 08/15/2020 10:51 Notice Type: IM Discharge Notice Notice Delivered To: Patient Relationship to Patient: Flight Test Mechanic Name: Delivery Method: HAND - Hand Delivered Chelsea Days: Prior Verbal Notification: Recipient Understood Notice: Yes Recipient Signature: Yes Med Rec Note Co-signed by Attending: Coverage Notice Comment: IMM explained, signed, given, copy placed in MR Reviewer: [id number] Dunbar Notice Issued Date-Time: 08/15/2020 12:22 Notice Type: Patient Choice Letter Notice Delivered To: Family Member Relationship to Patient: Daughter in Law Flight Test Mechanic Name: Shana Reyes Delivery Method: PHONE - Phone Chelsea Days: Prior Verbal Notification: Recipient Understood Notice: Yes Recipient Signature: Med Rec Note Co-signed by Attending: Coverage Notice Comment: [facility] inpatient rehab Last DP export: 08/14/20 11:55 a Patient Name: SARBJIT REYES Page [phone] at 1230 All edits/amendments must be made on the electronic document DICTATION DATE: 08/15/20 1230 TESTER OPERATOR HELPER: JADYN 08/15/20 1230 RPT#: [id number] DC DATE: STATUS: ADM IN [facility] [address] [place] [address] END OF REPORT
--- NOTE | 2020-08-15 13:54 | NUR ---
Rehab Note- Spoke with Jacqueline with [facility] to initiate PReAuth process. Pending Ref#[id number]. Faxed clinicals in at this time. Will continue to await determination for possible inpatient acute rehab stay. Thank you for this referral! Jemma Boykin RN Clinical Liaison, [facility] Rehab
--- NOTE | 2020-08-15 15:19 | NUR ---
SPOKE WITH PT ON FLU VACCINE PT STATED "NO." "I WILL GET AT [facility] WHEN I GO HOME."
[2020-08-15] MEDS ORDERED: FLORAJEN3 CAPS460 MG PO (17:33)
[2020-08-15] MEDS ORDERED: PATOWN PO (17:48)
--- NOTE | 2020-08-15 21:57 | NUR ---
OT NOTE: PT COMPLETED SUPINE TO SIT WITH CGA. PT COMPLETED SIT TO STAND WITH SBA. PT COMPLETED ADL MOB WITH RW REQUIRED CGA. PT COMPLETED KELSEY GOWN WITH MIN A. PT COMPLETED KELSEY SHOES WITH SETUP. PT COOPERATIVE AND ACTIVELY PARTICIPATED. PT EXHIBITED INCREASED ACTIVITY TOLERANCE WITH FUNCTIONAL TASKS. [phone] THANK YOU,SARAH SOLIMAN
--- NOTE | 2020-08-16 09:24 | MORECARE ---
CASE MANAGEMENT DISCHARGE SUMMARY PATIENT: SARBJIT REYES UNIT: [id number] ADM DATE: 08/12/20 AGE: 89 : [birth year] SEX: F ROOM/BED: D.2103 AUTHOR: CHELO,DOC PHYSICIAN: REFERRING PHYSICIAN: KAYLI HIGGINS MD DATE OF SERVICE: 08/16/20 Discharge Plan Patient Name: SARBJIT REYES Facility: [facility]:[place] : 1930 Planned Disposition: Home Anticipated Discharge Date: Discharge Date: 08/15/2020 Expected LOS: Initial Reviewer: [email or web address] Initial Review Date: 08/14/2020 Generated: 08/16/20 10:24 am Comments DCP- Discharge Planning Updated by [email or web address]: Arlet Dunbar on 08/15/20 11:[address] I spoke with SATYA Trevino, she states that patient agrees to inpatient rehab at [facility]. I have called Jemma in inpatient rehab and informed, they will accept today. DCP- Discharge Planning Updated by [email or web address]: Arlet Dunbar on 08/14/20 11:[address] I spoke with Shana HERNADEZ (works at [facility] in outpatient's), and she confirms that patient has decreased free water intake and has been eating foods high in Na. States she would like to speak with Dr. Higgins on rounds. I have informed Casa of this. CM will continue to follow and assist with discharge planning/needs. DCP- Discharge Planning Updated by [id number]: Arlet Manjinder on 08/14/20 11:[address] Patient Name: SARBJIT REYES Admission Status: ER Accout number: [id number] Admission Date: 08-12-2020 : 1930 Admission Diagnosis: Attending: KAYLI HIGGINS Current LOS: 2 Anticipated DC Date: Planned Disposition: Home Primary Insurance: MEDICARE A & B Discharge Planning Comments: CM met with patient to complete initial dc planning assessment. CM educated patient on the CM role and verbal consent given by patient to complete assessment. Patient is staying with her son and DIL at [address] [place] [address]. At discharge patient plans to return and feels this is a safe discharge. States when she is able to go back home to [place], she plans on returning to [place]. CM discussed availability of home health, rehab services, and medical equipment. Patient denied known discharge needs at this time. Declines rehab or home health. States she plans on getting home health when she returns to [place]. States her family is already making arrangements for HHS when she returns home to [place]. CM will continue to follow and will assist as needed with dc plans/needs. Wine Merchant: Arlet Dunbar DCPIA - Discharge Planning Initial Assessment Updated by [id number]: Arlet Dunbar on 08/14/20 12:36 pm * Is the patient Alert and Oriented? Yes * How many steps to enter\exit or inside your home? 0/0 * PCP Dr. Salcido in [place] * Pharmacy [facility] on [address] * Preadmission Environment Home with Family * ADLs Partial Dependent * Partial ADLs (Assistance needed) Ambulation Dressing * Equipment Cane Walker * List name and contact numbers for known caregivers / representatives who currently or will assist patient after discharge: Domingo Reyes - Son (POA) - [phone] * Verbal permission to speak to the caregivers and representatives has been obtained from the patient. Yes * Community resources currently utilized None * Additional services required to return to the preadmission environment? No * Can the patient safely return to the preadmission environment? Yes * Has this patient been hospitalized within the prior 30 days at any hospital? Yes Coverage Notice Reviewer: [id number] - Arlet Dunbar Notice Issued Date-Time: 08/14/2020 12:32 Notice Type: IM Discharge Notice Notice Delivered To: Patient Relationship to Patient: Self Material Loader Name: Delivery Method: HAND - Hand Delivered Chelsea Days: Prior Verbal Notification: Recipient Understood Notice: Yes Recipient Signature: Yes Med Rec Note Co-signed by Attending: Coverage Notice Comment: IMM explained, signed, given, copy placed in MR Reviewer: [id number] Annamaria Dunbar Notice Issued Date-Time: 08/15/2020 10:51 Notice Type: IM Discharge Notice Notice Delivered To: Patient Relationship to Patient: Material Loader Name: Delivery Method: HAND - Hand Delivered Chelsea Days: Prior Verbal Notification: Recipient Understood Notice: Yes Recipient Signature: Yes Med Rec Note Co-signed by Attending: Coverage Notice Comment: IMM explained, signed, given, copy placed in MR Reviewer: [id number] Annamaria Dunbar Notice Issued Date-Time: 08/15/2020 12:22 Notice Type: Patient Choice Letter Notice Delivered To: Family Member Relationship to Patient: Daughter in Law Material Loader Name: Shana Reyes Delivery Method: PHONE - Phone Chelsea Days: Prior Verbal Notification: Recipient Understood Notice: Yes Recipient Signature: Med Rec Note Co-signed by Attending: Coverage Notice Comment: [facility] inpatient rehab Last DP export: 08/15/20 11:30 a Patient Name: SARBJIT REYES Page [phone] at 0924 All edits/amendments must be made on the electronic document DICTATION DATE: 08/16/20923 STABILIZING MACHINE OPERATOR: JADYN 08/16/20923 RPT#: [id number] DC DATE:08/15/20 STATUS: DIS IN [facility] [address] [place] [address] END OF REPORT
== END 2020-08-15 16:45 | DRG 643 ==
LOC: D.ER 05:58 → D.EDHOLD 15:30 → D.M2 15:30
PROVIDERS: Family Medicine; Family Medicine Adult Medicine; Internal Medicine Nephrology; ADMIT Family Medicine; ATTEND Family Medicine
DX: E22.2 Syndrome of inappropriate secretion of antidiuretic hormone (principal); N17.0 Acute kidney failure with tubular necrosis; J18.9 Pneumonia, unspecified organism; J98.11 Atelectasis; G72.81 Critical illness myopathy; E87.5 Hyperkalemia; D64.9 Anemia, unspecified; I10 Essential (primary) hypertension; E86.0 Dehydration; Z78.0 Asymptomatic menopausal state; Z85.3 Personal history of malignant neoplasm of breast; Z87.891 Personal history of nicotine dependence

== ENCOUNTER 2020-08-15 16:47 | Inpatient (IN) | payer MEDICARE, OTHER ==
[~2020-08-15] VITALS: Ht 167.6 cm; Wt 66.2 kg
[~2020-08-15 16:47] MED LIST changes: +MUCINEX600 MG PO; +OMNICEF300 MG PO; +TESSALON PERLE100 MG PO; +ZITHROMAX500 MG PO
[2020-08-15 17:21] VITALS: BP 149/82; BMI 23.6
[2020-08-15] MEDS ORDERED: FLORAJEN3 CAPS460 MG PO (17:33)
[2020-08-15] MEDS ORDERED: PATOWN PO (17:48)
--- NOTE | 2020-08-15 18:28 | NUR ---
ADMIT TO REHAB FROM ACUTE CARE AT [facility]. [place] X4. [place]. LEFT BREAST WAS RECENTLY (APPX 3 WEEKS AGO) REMOVED DUE TO BREAST CANCER. WHERE BREAST WAS IS A DEEP BUT HEALING INCISION. THE SKIN OF LEFT BREAST AREA IS A DARK PURPLISH/REDISH COLOR AND IS FIRM TO TOUCH. SHE DENIES PAIN. ALSO HAS HEALED ABD INCISION THAT PT SAID WAS FROM HER DOROTHY APPX 3 WEEKS AGO. HER BUTTOCKS ARE RED BUT NO OPEN. ENCOURAGED HER TO TURN Q2 HOURS. SHE USED A WALKER FOR AMBULATION ASST TO BATHROOM. SHE IS INCONT OF B/B. TEACHING WITH SON AND PT ABOUT HER DIET AND HOW TO MAINTAIN NA+ LEVELS AFTER DC. THEY STATED UNDERSTANDING AND DENIES QUESTIONS.
[2020-08-15 19:31] VITALS: BP 149/82
--- NOTE | 2020-08-15 19:43 | NUR ---
AWAKE AND ALERT. RESTING IN BED WITH RESPIRAITONS UNLABORED. NO DISTRESS NOTED. CALL LIGHT IN REACH.
--- NOTE | 2020-08-16 00:06 | NUR ---
SLEEPING WITH RESPIRAITONS UNLABORED AND NO DISTRESS NOTED.
--- NOTE | 2020-08-16 03:40 | NUR ---
RESTING QUIETLY. NO DISTRESS NOTED.
--- NOTE | 2020-08-16 04:59 | NUR ---
QUIET HOURS. NO ACUTE CHANGES IN CONDITION THIS SHIFT. RESTING IN BED WITH NO DISTRESS NOTED.
[2020-08-16 07:56] VITALS: BP 161/74
--- NOTE | 2020-08-16 08:30 | NUR ---
SITTING UP IN BED FOR BREAKFAST. DENIES NEEDS OR C/O. BED IN LOWEST POSITION, SIDE RAILS UP X2. CALL LIGHT IN REACH
[2020-08-16 08:56] LABS: ANION GAP 10.7 mmol/L (8-16); BILIRUBIN - TOTAL 0.54 mg/dL (0.2-1.3); CALCIUM 9.5 mg/dL (8.5-10.1); CARBON DIOXIDE 26.8 mmol/L (21.0-32.0); CREATININE - SERUM 1.1 mg/dL (0.6-1.3); POTASSIUM - SERUM 4.5 mmol/L (3.5-5.1); PROTEIN - SERUM 5.6 g/dL (6.4-8.2)
[2020-08-16 12:46] VITALS: Ht 167.6 cm; Wt 66.2 kg
--- NOTE | 2020-08-16 14:34 | NUR ---
LAYING IN BED RESTING QUIETLY. INCONT OF B/B. IS [place]. SEEMS ANXIOUS AT TIMES AND HAS TROUBLE FOCUSING. BED IN LOWEST POSITION, SIDE RAILS UP X2. CALL LIGHT IN REACH
--- NOTE | 2020-08-16 16:04 | NUR ---
PATIENT ADMITTED TO REHAB FROM ACUTE FLOOR. HER PCP IS DR. CLARKE IN [place]. HER SON , VIELKA REYES IS PATIENT POA.DME AT HOME IS A WALKER AND A CANE. DISCHARGE PLANS ARE FOR PATIENT TO RETURN HOME WITH HER FAMILY. WILL CONTINUE TO FOLLOW WITH PATIENT.
--- NOTE | 2020-08-16 19:00 | NUR ---
RECEIVED PT SITTING UP IN BED. ALERT AND ORIENTED X4. DENIES ANY PAIN. C/O SOME NAUSEA. PROVIDED COOL WASHCLOTH. LEFT CHEST HEALING INCISION S/P MASTECTOMY X3 WKS AGO SOME PURPLISH DISCOLORATION NOTED. VS STABLE. CALL LIGHT AND WATER WITHIN REACH. FALL PRECAUTIONS IN PLACE. CPOC
[2020-08-16 20:22] VITALS: BP 144/77
--- NOTE | 2020-08-17 00:36 | NUR ---
PT LYING IN BED SUPINE EYES CLOSED RESTING. HOB ELEVATED. RR EVEN AND UNLABORED. CALL LIGHT WITHIN REACH. WILL CONTINUE TO MONITOR
--- NOTE | 2020-08-17 02:59 | NUR ---
PT LYING IN BED EYES CLOSED RESTING. RR EVEN AND UNLABORED. CALL LIGHT WITHIN REACH. WILL CONTINUE TO MONITOR
--- NOTE | 2020-08-17 05:15 | NUR ---
INCONTINENCE CARE PROVIDED. LARGE URINE INCONTINENCE. BUTTPASTE APPLIED TO BUTTOCKS AND GROIN. C/O NAUSEA REQUEST MEDICATION. WILL ADMININSTER ACCORDINGLY. NO ACUTE CHANGES IN CONDITION NOTED THIS SHIFT. CALL LIGHT AND WATER WITHIN REACH. FALL PRECAUTIONS IN PLACE. CPOC
[2020-08-17 08:00] VITALS: BP 155/70
--- NOTE | 2020-08-17 08:00 | NUR ---
SHIFT ASSMT COMPLETED.
--- NOTE | 2020-08-17 19:15 | NUR ---
RECEIVED PT LYING IN BED AWAKE. ALERT AND ORIENTED X4. ASSISTED TO RESTROOM WITH SBA. CLEAN BRIEF PROVIDED. BUTTPASTE APPLIED TO GROIN AND BUTTOCKS. PT BACK IN BED WITH HOB ELEVATED. NO ACUTE DISTRESS NOTED. NO OTHER NEEDS OR PAIN VOICED. CALL LIGHT AND HYDRATION WITHIN REACH. FALL PRECAUTIONS IN PLACE. CPOC
[2020-08-17 20:00] VITALS: BP 139/65
--- NOTE | 2020-08-17 22:43 | NUR ---
PT LYING IN BED EYES CLOSED RESTING. HOB ELEVATED. RR EVEN AND UNLABORED. CALL LIGHT WITHIN REACH. WILL CONTINUE TO MONITOR
--- NOTE | 2020-08-17 23:52 | NUR ---
PT C/O NAUSEA ADMININSTERED ZOFRAN 8MG PER PT REQUESTS. ASSISTED TO RESTROOOM WITH SBA. VOID AND SMALL FORMED BM. BRIEF CHANGED. HAND HYGIENE PERFORMED. ASSISTED BACK TO BED WITH SBA. NO OTHER NEEDS VOICED. CALL LIGHT WITHIN REACH. FALL PRECAUTIONS IN PLACE. WILL CONTINUE TO MONITOR
--- NOTE | 2020-08-18 02:16 | NUR ---
PT LYING IN BED AWAKE, PT STATES SHE IS UNABLE TO SLEEP D/T DREAMING ABOUT SELLING LAND. REPOSITIONED PT TO LEFT SIDE, PROVIDED WARM BLANKET. WILL CONTINUE TO MONITOR
--- NOTE | 2020-08-18 04:56 | NUR ---
PT LYING IN BED RESTING. TOILETING OFFERED. ASSISTED PT TO RESTROOM AND BACK TO BED SBA. BRIEF CHANGED. BLADDER EMPTIED. DENIES ANY OTHER NEEDS. CALL LIGHT AND HYDRATION WITHIN REACH. WILL CONTINUE TO MONITOR
--- NOTE | 2020-08-18 05:26 | NUR ---
PT REQUESTED ENSURE, PROVIDED STRAWBERRY ENSURE. NO OTHER NEEDS VOICED
[2020-08-18 08:00] VITALS: BP 137/66
--- NOTE | 2020-08-18 08:00 | NUR ---
SHIFT ASSMT COMPLETED.CL IN REACH.BREAKFAST TRAY GIVEN.
--- NOTE | 2020-08-18 10:00 | NUR ---
CALLED AND STATED SHE IS INCONTINENT IN BRIEF.TAKEN TO BATHROOM AND NOTED BM;WIPES GIVEN ALONG WITH BRIEF,COMPLETED TASK INDEPENDENTLY.
--- NOTE | 2020-08-18 15:46 | RHP ---
PATIENT: SARBJIT REYES MEDICAL RECORD: [id number] ACCOUNT: [id number] LOCATION:[id number] : [birth year] ADMISSION DATE: 08/15/20 REHABILITATION HISTORY AND PHYSICAL EXAMINATION POST ADMISSION PHYSICIAN EXAMINATION ADMITTING DIAGNOSES: Muscular weakness and disuse atrophy secondary to recent hospitalizations. HISTORY OF PRESENT ILLNESS: The patient is an 89-year-old female who presented to ED with complaints of lower extremity swelling, weakness and shortness of breath. She has been hospitalized the previous week. On 08/07/2020, she was noted to be pretty hyponatremic. She had just recently came to [place] from [place] with her son and his , did recent hospitalizations. She has been admitted [facility] several times for low sodium. She has got a history of hypertension, chronic incontinence, generalized weakness, breast cancer. The patient has had nephrology consult and been following her during her stay. She has strong willed intervention. She has been receiving speech therapy, PT and OT throughout her stay and progressing well. She is currently having some weakness with electrolyte abnormality. She is receiving IV therapy. The patient is being watched closely for electrolyte imbalances and monitoring her pain, her I's and O's. She does have some bowel and bladder incontinence at times. We are monitoring her blood sugars. She has got proximal muscle weakness, fatigue, shortness of breath, debility, impaired mobility, gait disturbance. She has high fall risk. These are all barriers to her discharge home. Lives at home alone, was independent with ADLs and mobility prior to this. She is currently set up for mod assist for ADLs, mod assist for mobility with use of a rolling walker. She plans to return home after discharge and hopefully at her prior level of functioning. COMORBIDITIES: Include weakness, oropharyngeal dysphagia, pneumonia, hyponatremia, anemia, chronic incontinence. She is status post left mastectomy, dehydration. PAST MEDICAL HISTORY: Includes hard of hearing, breast cancer, hypertension, bowel incontinence, generalized weakness. She is postmenopausal. PAST SURGICAL HISTORY: Includes gallbladder surgery, hip surgery, mastectomy. ALLERGIES: No known drug allergies. CURRENT MEDICATIONS: Include Floranex daily, she is on Arimidex 1 mg daily, Zithromax 500 mg daily for a total of 3 doses, aspirin chewable 81 mg daily, melatonin 6 mg daily, Mucinex 1200 mg b.i.d., Omnicef 300 mg b.i.d., Tessalon Perles 100 mg t.i.d., Perforomist 20 mcg b.i.d., budesonide 0.5 mg b.i.d., polyethylene glycol 17 grams in 8 ounces of water daily and Zofran 8 mg every 8 hours p.r.n. HABITS: No current alcohol or tobacco use. FAMILY HISTORY: Noncontributory. SOCIAL HISTORY: As above. The patient hopes to return back home and get back to her prior level of functioning. HISTORY AND PHYSICAL [id number] SARBJIT REYES REVIEW OF SYSTEMS: GENERAL: Does complain of weakness and fatigue. HEENT: Denies cold, cough, or congestion. CARDIOVASCULAR: Denies any chest pain. PHYSICAL EXAMINATION: VITAL SIGNS: Stable, afebrile. GENERAL: Elderly female, in no acute distress upon exam. HEENT: Normocephalic and atraumatic. Mucosa moist. NECK: Supple. No lymphadenopathy. LUNGS: Clear in upper tate. No wheezing, rhonchi or rales. HEART: Regular rate and rhythm. She does have a holosystolic murmur. ABDOMEN: Soft, benign, and nondistended. Positive bowel sounds times 4. EXTREMITIES: No clubbing, cyanosis or edema. NEUROLOGIC: She is quite deconditioned and weak. ASSESSMENT: This is an 89-year-old female patient admitted to rehab with a working diagnosis of debility. The patient has potential to make improvement. We instituted the following multiple disciplinary therapies including to, but not limited to physical, occupational, respiratory, speech, nutritional services, prosthetics and orthotics. Given her complex medical condition and risks for more complications, rehabilitation services cannot be provided at a low level of care such as nursing home facility. PLAN: 1. Admit to [facility] for inpatient therapy to include the following disciplines; A. Physical therapy to improve gait, all transfer skills and bed mobility to a modified independent level. B. Occupational therapy to improve activities of daily living. C. Case management to help with discharge planning and placement options. D. Nutrition to assist with nutritional needs. E. Rehabilitation nursing to assist in monitoring the patient's underlying medical conditions and to assist with any type of bowel or bladder management. 2. The patient's current medication and medical care will be continued. 3. Placed on standard fall precautions. 4. The patient's estimated length of stay is approximately 7-10 days. 5. We will discuss the patient during care team staff meeting this week, watch the skin area around her mastectomy closely. She does have a lot of discoloration to it and I will see again in the a.m. TRANSINT:[id number] Voice Confirmation ID: [id number] DOCUMENT ID: [id number] MARGARITA notes whether there has been none or any medical/functional change since admission: - No change since preadmission screen. MARGARITA attests patient continues to be appropriate for IRF: - Continues to be appropriate. HISTORY AND PHYSICAL [id number] SARBJIT REYES,CANDACE TRUONG MD at 1546 CC: [id number] DICTATION DATE: 08/16/20853 HYDRAULIC HAMMER OPERATOR: 08/16/20 0933 ADM IN [place] [id number] [place] [address]
--- NOTE | 2020-08-18 18:57 | NUR ---
RECEIVED PT SITTING UP IN BED. HOB ELEVATED. ALERT AND ORIENTED X4. DENIES ANY NEEDS OR PAIN. NO ACUTE DISTRESS NOTED. LEFT CHEST INCISION HEALING. NO DRAINAGE NOTED. ABDOMINAL INCISION HEALING WNL. NO DRAINAGE NOTED.CALL LIGHT AND HYDRATION WITHIN REACH. FALL PRECAUTIONS IN PLACE. CPOC
[2020-08-18 19:10] VITALS: BP 135/63
--- NOTE | 2020-08-18 19:10 | NUR ---
SHIFT ASSESSMENT COMPLETE. VS STABLE. DENIES ANY NEEDS OR PAIN. NO ACUTE DISTRESS NOTED. CALL LIGHT AND HYDRATION WITHIN REACH. WILL CONTINUE TO MONITOR
--- NOTE | 2020-08-18 22:40 | NUR ---
ASSISTED TO RESTROOM AND BACK TO BED WITH MIN ASSIST. CLEAN BRIEF AND PAD PROVIDED. PERICARE DONE INDEPENDENTLY. CALMOSEPTINE APPLIED TO BUTTOCKS AND GROIN. CALL LIGHT AND HYDRATION WITHIN REACH. WILL CONTINUE TO MONITOR
--- NOTE | 2020-08-19 01:25 | NUR ---
ASSISTED PT TO RESTROOM AND BACK TO BED WITH SBA. BRIEF AND PAD CHANGED. PT PERFORMED PERICARE AND HAND HYGIENE INDEPENDENTLY. DENIES ANY OTHER NEEDS OR PAIN. POSITIONED ON LEFT SIDE. CALL LIGHT AND HYDRATION WITHIN REACH. FALL PRECAUTIONS IN PLACE. CPOC
--- NOTE | 2020-08-19 03:31 | NUR ---
PT LYING IN BED EYES CLOSED RESTING. HOB ELEVATED. RR EVEN AND UNLABORED. CALL LIGHT WITHIN REACH. WILL CONTINUE TO MONITOR
--- NOTE | 2020-08-19 04:55 | NUR ---
ASSISTED PT TO RESTROOM AND BACK TO BED WITH SBA. BRIEF AND PAD CHANGED. PERICARE DONE INDEPENDENTLY. CALMOSEPTINE APPLIED TO BUTTOCKS AND GROIN FOR REDDNESS. CALL LIGHT AND FRESH HYDRATION WITHIN REACH. FALL PRECAUTIONS IN PLACE. WILL CONTINUE TO MONITOR
[2020-08-19 07:13] LABS: BASOPHILS 0.4 % (0-2); EOSINOPHILS 3.8 % (0-7); HEMOGLOBIN 10.2 g/dL (12-16); IMMATURE GRANULOCYTES 0.4 % (0-5); LYMPHOCYTES 15.5 % (15-50); MCH 29.4 pg (26.0-34.0); MCHC 30.9 g/dL (31.0-37.0); MCV 95.1 fL (80.0-100.0); MEAN PLATELET VOLUME 8.8 fL (7.4-10.4); MONOCYTES 7.7 % (2-11); NEUTROPHILS 72.2 % (40-80); RBC 3.47 10x6/uL (4.00-5.40); RDW 16.1 % (11.5-14.5); WBC 8.2 10x3/uL (4.8-10.8)
[2020-08-19 07:14] LABS: PLATELET COUNT 233 10x3/uL (130-400)
[2020-08-19 07:24] LABS: ANION GAP 8.2 mmol/L (8-16); CALCIUM 9.7 mg/dL (8.5-10.1); CARBON DIOXIDE 29.2 mmol/L (21.0-32.0); CREATININE - SERUM 1.3 mg/dL (0.6-1.3); POTASSIUM - SERUM 4.4 mmol/L (3.5-5.1)
[2020-08-19 07:40] VITALS: BP 141/72
--- NOTE | 2020-08-19 10:47 | NUR ---
Nutrition Follow-up: Diet: Regular PO intake: ~54% average x last 6 meals Last BM: 08/19/20. Wt: 146# (08/16/20) Meds noted: anastrozole, probiotics, zofran. Labs noted: Na 132(L), GFR 41(L) Recommend continue current diet. Enocurage PO intake. Will add Ensure TID with meals. Continue zofran PRN for nausea. Recommend MD may consider adding appetite stimulant (such as marinol) as medically feasible. RD following.
--- NOTE | 2020-08-19 12:36 | NUR ---
SITTING UP IN BED FOR LUNCH. IS WEAK AND UNSTEADY. DENIES PAIN OR NEEDS. IS INCONT OF B/B BUT WILL VOID IN TOILET ALSO. CALL LIGHT IN REACH. BED IN LOWEST POSITION. SIDE RAILS UP X2
--- NOTE | 2020-08-19 15:43 | NUR ---
SITTING UP IN BED AT APPX 90 DEGREES. APPEARS TO BE ASLEEP.
[2020-08-19 19:29] VITALS: BP 141/67
--- NOTE | 2020-08-19 23:38 | NUR ---
AWAKE AND ALERT. RESTING IN BED WITH NO DISTRESS NOTED. RESERVE LEFT ARM. NO NEEDS VOICED. CALL LIGHT IN REACH.
--- NOTE | 2020-08-20 00:49 | NUR ---
RESTING IN BED WITH RESPIRATIONS UNLABORED. NO DISTRESS NOTED.
--- NOTE | 2020-08-20 02:29 | NUR ---
CONTINUES SLEEPING WITH NO DISTRESS NOTED.
--- NOTE | 2020-08-20 06:17 | NUR ---
ASSISTED TO BATHROOM AND BACK TO BED. QUIET HOURS. NO ACUTE CHANGES IN CONDITION. NO DISTRESS NOTED. CALL LIGHT IN REACH.
--- NOTE | 2020-08-20 08:00 | NUR ---
SITTING UP IN BED FOR BREAKFAST. DENIES PAIN OR SOB. STATES SHE STILL FEELS WEAK BUT IS GETTING STRONGER. BED IN LOWEST POSITION, CALL LIGHT IN REACH, SIDE RAILS UP X2
[2020-08-20 08:36] VITALS: BP 130/66
--- NOTE | 2020-08-20 19:14 | NUR ---
AWAKE AND ALERT. RESTING IN BED WITH RESPIRATIONS UNLABORED. NO DISTRESS NOTED. CALL LIGHT IN REACH.
[2020-08-20 20:11] VITALS: BP 129/61
--- NOTE | 2020-08-21 01:23 | NUR ---
RESTING IN BED. NOT SLEEPING MUCH. C/O BEING ANXIOUS. RESPIRATIONS UNLABORED. WILL MONITOR. CALL LIGHT IN REACH.
--- NOTE | 2020-08-21 05:01 | NUR ---
RESTING IN BED. MEDICATED AGAIN FOR C/O NAUSEA. NO VOMITING NOTED. HEAD OF BED ELEVATED. RESPIRAITONS UNLABORED. CALL LIGHT IN REACH.
[2020-08-21 05:41] LABS: BASOPHILS 0.4 % (0-2); EOSINOPHILS 2.3 % (0-7); HEMATOCRIT 33.4 % (36.0-48.0); HEMOGLOBIN 10.5 g/dL (12-16); IMMATURE GRANULOCYTES 0.4 % (0-5); LYMPHOCYTES 16.7 % (15-50); MCH 29.7 pg (26.0-34.0); MCHC 31.4 g/dL (31.0-37.0); MCV 94.6 fL (80.0-100.0); MEAN PLATELET VOLUME 8.9 fL (7.4-10.4); MONOCYTES 10.7 % (2-11); NEUTROPHILS 69.5 % (40-80); PLATELET COUNT 270 10x3/uL (130-400); RBC 3.53 10x6/uL (4.00-5.40); WBC 8.3 10x3/uL (4.8-10.8)
[2020-08-21 06:01] LABS: ANION GAP 10.3 mmol/L (8-16); CALCIUM 9.8 mg/dL (8.5-10.1); CARBON DIOXIDE 29.9 mmol/L (21.0-32.0); CREATININE - SERUM 1.4 mg/dL (0.6-1.3); POTASSIUM - SERUM 4.2 mmol/L (3.5-5.1)
[2020-08-21 07:23] VITALS: BP 125/54
--- NOTE | 2020-08-21 08:00 | NUR ---
SHIFT ASSMT COMPLETED.BREAKFAST GIVEN.CL IN REACH.
--- NOTE | 2020-08-21 08:00 | NUR ---
SHIFT ASSMT COMPLETED.UNABLE TO EAT BREAKFAST D/T NAUSEA.;ZOFRAN GIVEN.
--- NOTE | 2020-08-21 12:00 | NUR ---
UP OOB AND TO BATHROOM AND BACK.SITTING UP EATING LUNCH.
--- NOTE | 2020-08-21 12:00 | NUR ---
STILL NOT FEELING GOOD,ABD STILL HURTS.NO MORE EMESIS OF CLEAR LIQ NOTED.
--- NOTE | 2020-08-21 13:01 | NUR ---
CARE TEAM MEETING: PATIENT IS DOING WELL IN THERAPY. HER FAMILY ATTENDED THE MEETING. THEIR QUESTIONS AND CONCERNS WERE ADDRESSED. WILL CONTNUE TO FOLLOW WITH PATIENT. HER TENATIVE DC DATE IS 08/26/20.
[2020-08-21 19:50] VITALS: BP 118/55
--- NOTE | 2020-08-21 19:59 | NUR ---
AWAKE AND ALERT. RESTING IN BED WITH RESPIRATIONS UNLABORED. NO DISTRESS NOTED. CALL LIGHT IN REACH.
--- NOTE | 2020-08-22 00:50 | NUR ---
RESTING QUIETLY NO DISTRESS NOTED.
--- NOTE | 2020-08-22 03:11 | NUR ---
CONTINUES RESTING WITH NO DISTRESS NOTED.
--- NOTE | 2020-08-22 05:10 | NUR ---
QUIET HOURS. NO ACUTE CHANGES IN CONDITION THIS SHIFT. RESTING IN BED WITH NO DISTRESS NOTED. CALL LIGHT IN REACH.
[2020-08-22 08:00] VITALS: BP 133/68
--- NOTE | 2020-08-22 08:00 | NUR ---
SHIFT ASSMT COMPLETED.BREAKFAST GIVEN.MEAL SET-UP PROVIDED.CL IN REACH.
--- NOTE | 2020-08-22 18:58 | NUR ---
RECEIVED PT SITTING UP IN BED. ALERT AND ORIENTED X3. DENIES ANY NEEDS OR PAIN. TOILETING OFFERED PT DENIES NEED. NO ACUTE DISTRESS NOTED. CALL LIGHT AND HYDRATION WITHIN REACH. FALL PRECAUTIONS IN PLACE. CPOC
[2020-08-22 19:20] VITALS: BP 128/66
--- NOTE | 2020-08-22 21:55 | NUR ---
ASSISTED PT TO RESTROOM AND BACK TO BED WITH SBA. PT CHANGED BRIEF AND PADS INDEPENDENTLY. CALMOSEPTINE APPLIED TO BUTTOCKS AND GROIN. NO OTHER NEEDS VOICED. CALL LIGHT WITHIN REACH.
--- NOTE | 2020-08-22 23:58 | NUR ---
PT LYING IN BED ON LEFT SIDE EYES CLOSED RESTING. RR EVEN AND UNLABORED. CALL LIGHT WITHIN REACH. WILL CONTINUE TO MONITOR
--- NOTE | 2020-08-23 01:53 | NUR ---
PT LYING IN BED EYES CLOSED RESTING. RR EVEN AND UNLABORED. EASILY AROUSED WITH STIMULI. ASSISTED TO RESTROOM AND BACK TO BED WITH SBA. CALL LIGHT WITHIN REACH.
--- NOTE | 2020-08-23 03:59 | NUR ---
ASSISTED PT TO RESTROOM AND BACK TO BED WITH SBA. BRIEF AND PAD CHANGED. PT PERFORMED PERICARE INDEPENDENTLY. CALMOSEPTINE APPLIED TO BUTTOCKS AND GROIN EXCORIATED. NO OTHER NEEDS VOICED. DENIES PAIN. CALL LIGHT AND HYDRATION WITHIN REACH. FALL PRECAUTIONS IN PLACE. NO ACUTE DISTRESS NOTED.
[2020-08-23 08:00] VITALS: BP 136/60
--- NOTE | 2020-08-23 08:00 | NUR ---
SITTING UP IN BED FOR BREAKFAST. INCONT OF BOWEL AND BLADDER. C/O NAUSEA. NO EMESIS NOTED. USES WALKER FOR AMBULATION ASST. CALL LIGHT IN REACH, SIDE RAILS UP X2, BED IN LOWEST POSITION
[2020-08-23 11:20] LABS: BASOPHILS 0.6 % (0-2); EOSINOPHILS 2.6 % (0-7); HEMATOCRIT 33.6 % (36.0-48.0); HEMOGLOBIN 10.5 g/dL (12-16); IMMATURE GRANULOCYTES 0.2 % (0-5); LYMPHOCYTES 13.6 % (15-50); MCH 29.8 pg (26.0-34.0); MCHC 31.3 g/dL (31.0-37.0); MCV 95.5 fL (80.0-100.0); MEAN PLATELET VOLUME 9.1 fL (7.4-10.4); MONOCYTES 10.2 % (2-11); NEUTROPHILS 72.8 % (40-80); PLATELET COUNT 311 10x3/uL (130-400); RBC 3.52 10x6/uL (4.00-5.40)
[2020-08-23 11:22] LABS: ANION GAP 8.5 mmol/L (8-16); CALCIUM 9.5 mg/dL (8.5-10.1); CARBON DIOXIDE 28.7 mmol/L (21.0-32.0); CREATININE - SERUM 1.5 mg/dL (0.6-1.3); POTASSIUM - SERUM 4.2 mmol/L (3.5-5.1)
--- NOTE | 2020-08-23 12:10 | NUR ---
NUTRITION FOLLOW UP: COMMENTS: Patient has been eating okay with 55% avg for the last 9 meals. Patient has not had a new weight recorded since 08/16. DIET: Cardiac Low Cholesterol PO INTAKE: 55% avg for last 9 meals WEIGHT: 08/16- 146 lbs BM: x1 on Aug 22 SIG MEDS: Zofran, Miralax SIG LABS: Na- 133(L), BUN-28(H), Cr-1.5(H) RECOMMENDATIONS: Continue AHA diet as tolerated Encourage PO intake If Poor PO intake continues, offer nutritional supplements RD to continue to follow and monitor patient DHS
--- NOTE | 2020-08-23 15:30 | NUR ---
STAND BY ASST TO USE RESTROOM. SHE TRANSFERED OUT OF BED BY SELF AND USED RESTROOM IN TOILET. INCONT OF URINE. C/O SKIN ITCHING IN RANDAL AREA. MEDS ORDERED FOR ITCHING. CALL LIGHT IN REACH, SIDE RAILS UP X2, BED IN LOWEST POSITION
--- NOTE | 2020-08-23 19:06 | NUR ---
PT SITTING UP IN BED. ALERT AND ORIENTED X3. DENIES ANY PAIN OR NEEDS. TOILETING OFFERED, PT DENIES NEED. NO ACUTE DISTRESS NOTED. CALL LIGHT AND HYDRATION WITHIN REACH. FALL PRECAUTIONS IN PLACE. CPOC
[2020-08-23 21:35] VITALS: BP 136/72
--- NOTE | 2020-08-23 21:40 | NUR ---
ASSISTED PT TO RESTROOM AND BACK TO BED WITH SBA USING WALKER. PT PERFORMED PERICARE AND CHANGED PAD AND BRIEF INDEPENDENTLY. HAND HYGIENE PERFORMED INDEPENDENTLY. NO OTHER NEEDS VOICED. CALL LIGHT WITHIN REACH. WILL CONTINUE TO MONITOR
--- NOTE | 2020-08-24 01:00 | NUR ---
ASSISTED PT TO RESTROOM AND BACK TO BED WITH SBA AMBULATING WITH WALKER. BRIEF AND PAD CHANGED INDEPENDENTLY PER PT. NYSTATIN APPLIED TO VAGINAL AREA PER PT. CALMOSEPTINE APPLIED TO BUTTOCKS. NO OTHER NEEDS VOICED. CALL LIGHT WITHIN REACH. FALL PRECAUTIONS IN PLACE. CPOC
--- NOTE | 2020-08-24 04:10 | NUR ---
ASSISTED TO RESTROOM AND BACK TO BED WITH SBA USING WALKER. BRIEF AND PAD CHANGED. CALMOSEPTINE APPLIED TO BUTTOCKS. NO OTHER NEEDS VOICED. CALL LIGHT AND HYDRATION WITHIN REACH. FALL PRECAUTIONS IN PLACE. CPOC
[2020-08-24 08:00] VITALS: BP 105/47
--- NOTE | 2020-08-24 08:15 | NUR ---
SITTING UP IN BED FOR BREAKFAST. DENIES SOB OR PAIN. STATES HER NAUSEA IS BETTER AT PRESENT. INCONT OF BOWEL AND BLADDER. WEARS INCONT BRIEFS AND PADS. CALL LIGHT IN REACH, BED IN LOWEST POSITION, SIDE RAILS UP X2.
[2020-08-24 19:45] VITALS: BP 110/59
--- NOTE | 2020-08-24 19:45 | NUR ---
BEDSIDE REPORT RECEIVED AND CARE RESUMED. ASSISTED HER TO THE RESTROOM. SHE HAD A BOWEL MOVEMENT. HER BUTTOCKS ARE RED. CALMOSEPTINE APPLIED. SHE DENIES PAIN OR NEEDS. HER BED IS LOW AND BED ALARM ON.
[2020-08-25 08:00] VITALS: BP 122/53
--- NOTE | 2020-08-25 13:03 | NUR ---
SITTING UP IN BED WATCHING FOOTBALL. REMAINS INCONT OF BOWEL AND BLADDER. MEDICATION APPLIED TO RANDAL AREA AND BUTTOCKS FOR RED AND ITCHING SKIN. USES WALKER FOR AMBULATION ASST. CALL LIGHT IN REACH, SIDE RAILS UP X2, BED IN LOWEST POSTION.
--- NOTE | 2020-08-25 17:04 | NUR ---
SITTING UP IN BED WATCHING TV. ZOFRAN ODT GIVEN FOR C/O NAUSEA. SHE DOES NOT EAT MUCH AND OFTEN HAS NAUSEA SHE THINKS IS FROM ANXIETY. STILL IS INCONT OF BOWEL AND BLADDER. USES WALKER FOR AMBULATION ASST. CALL LIGHT IN REACH, SIDE RAILS UP X2, BED IN LOWEST POSTION.
--- NOTE | 2020-08-25 19:45 | NUR ---
ASSISTED PT TO RESTROOM. SHE HAD A BOWEL MOVEMENT. REDNESS AND EXCORIATION TO BUTTOCKS AND VAGINAL AREA. CALMOSEPTINE AND VAGISIL APPLIED. ASSISTED BACK TO BED. TAY ALARM ON. BED IS LOW AND SIDE RAILS UP X 2. SHE DENIES PAIN OR NEEDS AT THIS TIME. CALL LIGHT WITHIN REACH.
[2020-08-26 00:51] VITALS: BP 120/62
[2020-08-26 07:59] VITALS: BP 142/67
[2020-08-26] MEDS ORDERED: ZOFRAN ODT4 MG/UDTAB PO (08:39)
--- NOTE | 2020-08-26 14:41 | NUR ---
RESTING QUIETLY IN BED. CALL LIGHT IN REACH, BED IN LOWEST POSITION, SIDE RAILS UP X2.
--- NOTE | 2020-08-26 19:25 | NUR ---
PT CALLED REQUESTING ASSISTANCE. ASSISTED PT TO RESTROOM USING WALKER SBA. PROVIDED PT WITH BRIEF, PAD, AND WIPES. PT ABLE TO INDEPENDENTLY DO PERICARE AND APPLY VAGISIL TO VAGINAL AREA AND GROIN, FISH ODOR NOTED COMING FROM PT VAGINAL AREA. PT COMPLAINS OF VAGINAL ITCHING. CALMOSEPTINE APPLIED TO BUTTOCKS FOR EXCORIATION BY THIS NURSE. PT PERFORMED HAND HYGIENE. ASSISTED TO BED USING WALKER WITH SBA. PT ABLE TO GET INTO BED WITHOUT ASSISTANCE. NO OTHER NEEDS VOICED. CALL LIGHT AND HYDRATION WITHIN REACH. FALL PRECAUTIONS IN PLACE. CPOC
[2020-08-26 21:25] VITALS: BP 142/73
--- NOTE | 2020-08-27 01:13 | NUR ---
PT LYING IN BED ON LEFT SIDE EYES CLOSED. RR EVEN AND UNLABORED. CALL LIGHT WITHIN REACH. WILL CONTINUE TO MONITOR
--- NOTE | 2020-08-27 08:00 | NUR ---
SHIFT ASSMT COMPLETED.
[2020-08-27 08:13] VITALS: BP 121/53
--- NOTE | 2020-08-27 10:39 | NUR ---
Nutrition Follow-up: Diet: Cardiac PO intake: 50-75%. She states that her appetite is not good. States that she is drinking ~75% of Ensure Enlive oral supplement x 3/day. Last BM: 08/26/20. Wt: 146# (08/16/20), no new weight Meds reviewed Labs noted (08/23/20): Na 133(L), BUN 28(H), Cr 1.5(H), GFR 35(L) Recommend liberalize diet to regular 2/2 patient's advanced age and poor appetite. Encouraged PO intake of meals and oral nutrition supplements. RD following.
--- NOTE | 2020-08-27 12:00 | NUR ---
EATING LUNCH.WILL DC HOME TODAY.
--- NOTE | 2020-08-27 12:40 | NUR ---
PATIENT DISCHARGING HOME TODAY WITH FAMILY. [facility] WILL RESUME THERAPY AT HOME. NO NEW DME NEEDED AT THIS TIME. DR. CANDACE CLARKE 09/03/20 @ 1:00, DR. BIRD 08/29/20 @ 1:30. JOSH SIGNED, IMM SERVED AND EXPLAINED, ONE GIVEN TO PATIENT AND ONE FILED IN CHART. NO COMPARE DATA REVIEWED PATIENT IS A CLIENT OF [facility] AND WISHES TO CONTINUE WITH THEIR SERVICE. DC INSTRUCTIONS FAXED TO PCP, HOME HEALTH AND REVIEWED WITH PATIENT AND FAMILY.
--- NOTE | 2020-08-27 13:40 | NUR ---
FLU VACCINE GIVEN.RT DELTOID.
== END 2020-08-27 14:38 | disposition home health service (06) | DRG 947 ==
LOC: D.REHAB 16:47
PROVIDERS: ADMIT Emergency Medicine; ATTEND Emergency Medicine
DX: R53.81 Other malaise (principal); J18.9 Pneumonia, unspecified organism; E87.1 Hypo-osmolality and hyponatremia; G72.81 Critical illness myopathy; N17.9 Acute kidney failure, unspecified; M62.58 Muscle wasting and atrophy, not elsewhere classified, other site; R13.12 Dysphagia, oropharyngeal phase; D64.9 Anemia, unspecified; R15.9 Full incontinence of feces; R32 Unspecified urinary incontinence; E87.8 Other disorders of electrolyte and fluid balance, not elsewhere classified; R53.83 Other fatigue; R26.9 Unspecified abnormalities of gait and mobility; E87.5 Hyperkalemia; I10 Essential (primary) hypertension